=== PATIENT | male | born 1970 | race Caucasian/White ===

== ENCOUNTER → 2020-09-01 | Outpatient (CLI) | payer BC ==
--- NOTE | 2020-09-01 13:09 | KCIC ---
Two-view chest dated 09/11/2020. No comparison available. Clinical indication: Shortness of breath and wheezing. Productive cough for one week. FINDINGS: PA and lateral views obtained. Heart and mediastinal contours are within normal limits. Lungs are mahendra ar. No consolidation or pleural effusion. No pneumothorax. There are some prominent perihilar linear markings, nonspecific. IMPRESSION: No acute radiographic abnormality. Electronically signed by: Tony Gomez MD (09/01/2020 1:06 PM) [id number]
== END ==
LOC: KCIC 12:47
PROVIDERS: ATTEND Family Medicine
DX: R05 Cough (principal); R06.02 Shortness of breath
CPT/HCPCS: 71046